=== PATIENT | female | born 1990 | race Asian ===

== ENCOUNTER 2019-10-20 23:24 | Emergency (ER) | payer OTHER, BC ==
[~2019-10-20] VITALS: Ht 157.5 cm; Wt 66.7 kg
[2019-10-20 23:28] VITALS: Ht 157.5 cm; Wt 66.7 kg
[2019-10-21 02:06] VITALS: BP 120/85
== END 2019-10-21 02:04 | disposition home or self-care (01) ==
LOC: ED 23:24
DX: M54.2 Cervicalgia (principal); M54.9 Dorsalgia, unspecified; J45.909 Unspecified asthma, uncomplicated; Z88.6 Allergy status to analgesic agent; V59.49XA Driver of pick-up truck or van injured in collision with other motor vehicles in traffic accident, initial encounter; Y93.I9 Activity, other involving external motion; Y92.413 State road as the place of occurrence of the external cause; Y99.8 Other external cause status
CPT/HCPCS: Q0092